=== PATIENT | female | born 1965 | race Asian ===

== ENCOUNTER 2018-12-16 23:07 | Emergency (ER) | payer BC ==
[2018-12-16 23:22] VITALS: BMI 25.7
--- NOTE | 2018-12-16 23:38 | PDOC ---
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 States that she had some sour cream and onion chips around 19:00 that she has eaten before without an issue but then noticed rash around 19:55-20:00 on her left arm which worsened when she came home at 21:00 and began to spread down her arm and to her abdomen and back. She took a very hot shower that made the rash worse. She took Benadryl 50 which helped tremendously and her rash was greatly resolved by the time she presented to the ED. 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 Denies any cough, nausea, vomiting, diarrhea, shortness of breath, tongue swelling, fevers, or other symptoms. 12/17/18 00:08 Past History - Past Medical History Allergies/Adverse Reactions: Allergies Allergy/AdvReac Type Severity Reaction Status Date / Time ibuprofen Allergy Verified 12/16/18 23:21 shellfish derived Allergy Verified 12/16/18 23:21 Home Medications: Ambulatory Orders Tramadol HCl [Ultram] 50 mg PO QID PRN #12 tablet 03/10/15 Asthma: No Cancer: No CVA: No COPD: No CHF: No Thyroid Disease: Yes (HYPO) - Suicide/Smoking/Psychosocial Hx Smoking History: Never smoked Have you smoked in the past 12 months: No Information on smoking cessation initiated: No Hx Alcohol Use: No Drug/Substance Use Hx: No Substance Use Type: None Review of Systems - Review of Systems Constitutional: No: Chills, Diaphoresis, Fever HEENTM: No: Blurred Vision, Tearing Respiratory: No: Orthopnea, Shortness of Breath, Wheezing Cardiac (ROS): No: Chest Pain, Edema, Irregular Heart Rate ABD/GI: No: Diarrhea, Nausea, Vomiting : No: Dysuria, Discharge Musculoskeletal: No: Joint Pain, Joint Swelling, Muscle Pain Integumentary: Yes: Change in Color, Erythema, Flushing, Lesions, Pruritus, Rash. No: Bruising, Dryness, Lumps Neurological: No: Headache, Numbness, Paresthesia Psychiatric: No: Anxiety, Depression Endocrine: No: Excessive Sweating, Flushing, Increased Hunger Hematologic/Lymphatic: No: Anemia, Blood Clots, Easy Bleeding *Physical Exam - Vital Signs Last Vital Signs Temp Pulse Resp BP Pulse Ox 98.2 F 85 20 142/89 99 12/16/18 23:19 12/16/18 23:19 12/16/18 23:19 12/16/18 23:19 12/16/18 23:19 - Physical Exam General Appearance: Yes: Nourished, Appropriately Dressed. No: Apparent Distress HEENT: positive: EOMI, LILI, Normal ENT Inspection, Normal Voice Neck: positive: Trachea midline, Normal Thyroid, Supple. negative: Tender, Rigid Respiratory/Chest: positive: Lungs Clear, Normal Breath Sounds. negative: Chest Tender, Respiratory Distress, Accessory Muscle Use Cardiovascular: positive: Regular Rhythm, Regular Rate Gastrointestinal/Abdominal: positive: Normal Bowel Sounds, Flat, Soft. negative : Tender Lymphatic: negative: Adenopathy, Tenderness Musculoskeletal: positive: Normal Inspection. negative: Decreased Range of Motion Extremity: positive: Normal Capillary Refill, Normal Inspection, Normal Range of Motion. negative: Tender Integumentary: positive: Dry, Warm, Rash, Swelling, Other (macular erythematous blanching rashes aon bilateral flanks left upper arm, abdomen, and lower back bilaterally.). negative: Normal Color Neurologic: positive: Fully Oriented, Alert, Normal Mood/Affect, Normal Response , Motor Strength 5/5 Moderate Sedation - Procedure Monitoring Vital Signs: Procedure Monitoring Vital Signs Temperature 98.2 F 12/16/18 23:19 Pulse Rate 85 12/16/18 23:19 Respiratory Rate 20 12/16/18 23:19 Blood Pressure 142/89 12/16/18 23:19 O2 Sat by Pulse Oximetry (%) 99 12/16/18 23:19 Medical Decision Making - Medical Decision Making 53 year old female with history of seafood allergy and arthritis presenting with rash to her arm, leg, and back with unknown cause. 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 Regardless her symptoms completely improved with home administration of Benadryl 50 and ranitidine 150 here. We administered PO prednisone as well for extra symptom relief prior to discharge. Will DC with PCP follow up and metal bonding press operator follow up. 12/17/18 01:18 *DC/Admit/Observation/Transfer Diagnosis at time of Disposition: Allergic reaction Qualifiers: Encounter type: initial encounter Qualified Code(s): T78.40XA - Allergy, unspecified, initial encounter - Discharge Dispostion Disposition: HOME Condition at time of disposition: Improved Decision to Admit order: No - Referrals Referrals: Eliecer Pascal [Primary Care Provider] - - Patient Instructions Printed Discharge Instructions: DI for General Allergic Reactions Additional Instructions: Please use Benadryl for any further itching. Please see your PCP for an allergy workup. Please return to the ED for new or worsening symptoms. - Post Discharge Activity
[2018-12-17] MEDS ORDERED: RANITIDINE HCL 150 MG TABLET (FP) PO ONE (00:11)
[2018-12-17] MEDS ORDERED: RANITIDINE HCL 150 MG TABLET (FP) ONE (00:12)
[2018-12-17] MEDS ORDERED: predniSONE 20 MG TABLET (UD) PO ONE (01:13)
--- NOTE | 2018-12-17 01:32 | PDOC ---
Attending Attestation - Resident Resident Name: Zenon Jane - ED Attending Attestation I have performed the following: I have examined & evaluated the patient, The case was reviewed & discussed with the resident, I agree w/resident's findings & plan - HPI HPI: 12/17/18 01:30 53-year-old female with hives and itching to the trunk and extremities. Patient has a history of ALLERGY to seafood but does not know of any specific trigger this evening. - Physicial Exam PE: 12/17/18 01:30 Agree with resident's exam - Medical Decision Making 12/17/18 01:30 53-year-old female with urticarial rash and history of ALLERGIES Patient improved with self-administered Benadryl Patient is currently on daily steroids for her rheumatoid arthritis, she will get an additional oral dose of 40 mg in the emergency department and will be discharged home On reevaluation at 1:20 AM patient is greatly improved in regards to rash and pruritus She continues to have no airway involvement and is resting comfortably
[2018-12-17] MEDS ORDERED: predniSONE 20 MG TABLET (UD) ONE (01:35)
[2018-12-17 01:43] VITALS: BP 122/77; PULSE 79; TEMP 97.9
== END 2018-12-17 01:43 | disposition home or self-care (01) ==
LOC: JER 23:07
DX: T78.40XA Allergy, unspecified, initial encounter (principal); M12.9 Arthropathy, unspecified; Z91.013 Allergy to seafood
CPT/HCPCS: 99281-25